=== PATIENT | female | born 1975 | race Caucasian/White ===

== ENCOUNTER 2017-07-01 05:05 | Day surgery (SDC) | payer MEDICAID ==
[2017-06-30 13:50] LABS: MCH 31.5 pg (26.0-34.0); MCHC 34.1 g/dL (31.0-37.0); MCV 92.1 fL (80.0-100.0); MEAN PLATELET VOLUME 9.8 fL (7.4-10.4); RBC 4.45 10x6/uL (4.00-5.40); RDW 12.4 % (11.5-14.5); WBC 9.7 10x3/uL (4.8-10.8)
[~2017-07-01 05:05] MED LIST: AMBIEN10 MG PO; EFFEXOR37.5 MG PO; HYDROCHLOROTH12.5 M1 PO; LYRICA300 MG PO; PERCOCET 10/3251 TA1 PO; ZANAFLEX4 MG PO
[2017-07-01 07:43] VITALS: BP 128/83; BMI 30.7
[2017-07-01 08:46] LABS: CALC OSMOLALITY 274 mosm/kg (275-300); CALCIUM 8.8 mg/dL (8.5-10.1); CARBON DIOXIDE 22.1 mmol/L (21.0-32.0); CHLORIDE - SERUM 103 mmol/L (98-107); CREATININE - SERUM 0.7 mg/dL (0.6-1.3); GLUCOSE 93 mg/dL (74-106); SODIUM 136 mmol/L (136-145); UREA NITROGEN 20 mg/dL (7-18); eGFR NON AFRICAN AMERICAN > 90 mL/min (90-120)
--- NOTE | 2017-07-01 10:41 | NUR ---
DR LOMELI AT , INJECTED PT WITH MARCAINE/LIDOCAINE FOR CONTINUED C/O PAIN.
--- NOTE | 2017-07-01 15:45 | NUR ---
1220--IV DC'D. SUZIE FRASER 1240--DISCHARGE INSTRUCTIONS GIVEN, PT VERBALIZES UNDERSTANDING. PT OFF UNIT VIA WC. SUZIE FRASER
--- NOTE | 2017-07-08 08:37 | OP ---
PATIENT NAME: BUDDY JONES MEDICAL RECORD: [id number] :71 LOCATION:D.OPS ADMISSION DATE: SURGEON: TERRIE LOMELI DPM DATE OF OPERATION: 07/01/2017 PREOPERATIVE DIAGNOSIS: Insufficiency fracture, left first metatarsal. POSTOPERATIVE DIAGNOSIS: Insufficiency fracture, left first metatarsal. PROCEDURE: ORIF, left first metatarsal, utilizing calcium phosphate injectable. ANESTHESIA: General with local infiltrate utilizing lidocaine and Marcaine plain, approximately 7 cc total. HEMOSTASIS: None. PREOPERATIVE DETAILS: The patient was taken to the OR and placed on the operating table in a supine position. This was followed by induction of general anesthesia and infiltration of local anesthetic. The left extremity was then prepped and draped in the usual aseptic technique. A small stab incision was made over the dorsal aspect of the middle of the first metatarsal. Utilizing guidewire under fluoroscopy, the cannula was placed in the head of the first metatarsal, being sure to not puncture into the first MPJ. At this time, under fluoroscopy guide, calcium phosphate was injected into the head of the first metatarsal with the appropriate amount. Following the injection and verification of C-arm of good placement, the calcium phosphate was left to cure for 10 minutes. The cannula was then removed, and the wound was closed with 4-0 nylon in a simple interrupted technique. Adaptic, 4 x 4 and Conform were used to dress the wound followed by Jared. POSTOPERATIVE DETAILS: The patient tolerated the procedure well and left the OR with vital signs stable and vascular status at preop levels. The patient was transported to recovery per anesthesia in stable condition. TRANSINT:[id number] Voice Confirmation ID: [id number] DOCUMENT ID: [id number] TERRIE LOMELI DPM at 0837 CC: [id number] DICTATION DATE: 07/01/17 1016 [employer] FEEDER: 07/01/17 1155 [facility] 07/01/[address] [address]
== END 2017-07-01 12:40 | disposition home or self-care (01) ==
LOC: D.OPS 05:05 → D.PAN 10:45 → D.OPS 12:00
PROVIDERS: Anesthesiology
DX: M84.475A Pathological fracture, left foot, initial encounter for fracture (principal); F17.200 Nicotine dependence, unspecified, uncomplicated; I10 Essential (primary) hypertension; K21.9 Gastro-esophageal reflux disease without esophagitis; Z01.812 Encounter for preprocedural laboratory examination

== ENCOUNTER 2018-02-03 05:15 | Day surgery (SDC) | payer MEDICAID ==
[2018-02-02 12:28] LABS: HEMATOCRIT 44.6 % (36.0-48.0); HEMOGLOBIN 15.3 g/dL (12-16); MCH 31.6 pg (26.0-34.0); MCHC 34.3 g/dL (31.0-37.0); MCV 92.1 fL (80.0-100.0); MEAN PLATELET VOLUME 9.5 fL (7.4-10.4); RBC 4.84 10x6/uL (4.00-5.40); RDW 12.5 % (11.5-14.5); WBC 8.5 10x3/uL (4.8-10.8)
[~2018-02-03] VITALS: Ht 167.6 cm; Wt 86.2 kg
--- NOTE | ~2018-02-03 | OP ---
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 PROCEDURE: First MPJ effusion, right foot. ANESTHESIA: Preoperative popliteal block per the anesthesia department as well as intraoperative general anesthesia. HEMOSTASIS: Right thigh tourniquet at 350 mmHg. PREOPERATIVE DETAILS: The patient was taken to the OR and placed on the operating table in a supine position. This was followed by induction of general anesthesia. The left extremity was then prepped and draped in usual aseptic technique followed by exsanguination and inflation of tourniquet. A 15 blade was used to create an incision over the dorsal aspect of the left first ray extending to the base of proximal phalanx. The incision was deepened down through subcutaneous tissue being sure to avoid all vital structures. Dissection was carried down to the first MPJ where a linear incision was made and the head of the first metatarsal and base of the proximal phalanx were delivered. There was noted to be significant degenerative joint disease of the head of the first metatarsal as well as the base of the proximal phalanx. There were significant osteochondral lesions with stage IV bucket lesion present as well as other osteochondral defects in the head of the first metatarsal. The base of the proximal phalanx also had significant degeneration of the cartilage. At this time, utilizing cup and cone reamers the cartilaginous surface was removed from the head of the first metatarsal and base of the proximal phalanx. This was followed by flushing and the joint was temporarily fixated with a K-wire. A 5-hole plate with 1 hole crossing the fusion site was then placed over the fusion site noting excellent internal rigid fixation as well as alignment of the hallux and compression of the fusion site. The wound was flushed. The joint capsule was repaired with 2-0 Vicryl, the subcutaneous tissue with 4-0 Rapide, and the skin was closed with 4-0 Rapide in a subcuticular technique followed by Dermabond, Adaptic, 4 x 4 and Conform were used to dress the wound followed by application of modified Mart compression dressing. Tourniquet was deflated. POSTOPERATIVE DETAILS: The patient tolerated the procedure well and left the OR with vital signs stable and vascular status at preoperative levels. The patient was transported to recovery per anesthesia in stable condition. TRANSINT:[id number] Voice Confirmation ID: [id number] DOCUMENT ID: [id number] OPERATIVE REPORT [id number] BUDDY JONES, TERRIE THURMAN at 0932 CC: [id number] DICTATION DATE: 02/03/18 0834 ELECTRONIC EQUIPMENT REPAIRER: 02/03/[address] [facility] 02/03/18 [id number] [place] [address]
[2018-02-03] MEDS ORDERED: PROTONIX20 MG (05:33)
[2018-02-03 05:34] VITALS: BP 119/82; Ht 167.6 cm; Wt 86.2 kg
== END 2018-02-03 12:05 | disposition home or self-care (01) ==
LOC: D.OPS 05:15 → D.PAN 07:00 → D.OPS 07:00
PROVIDERS: Anesthesiology
DX: M19.072 Primary osteoarthritis, left ankle and foot (principal); F17.200 Nicotine dependence, unspecified, uncomplicated; I10 Essential (primary) hypertension; K21.9 Gastro-esophageal reflux disease without esophagitis; Z01.812 Encounter for preprocedural laboratory examination

== ENCOUNTER 2018-06-23 13:24 | Emergency (ER) | payer MEDICAID ==
[~2018-06-23] VITALS: Ht 167.6 cm; Wt 81.8 kg
[~2018-06-23 13:24] MED LIST changes: +PROTONIX20 MG
[2018-06-23 13:36] VITALS: Ht 167.6 cm; Wt 81.8 kg
[2018-06-23] MEDS ORDERED: SUMATRIPTAN SUC25 MG PO (18:28)
[2018-06-23 19:28] VITALS: BP 145/77
== END 2018-06-23 19:28 | disposition home or self-care (01) ==
LOC: D.ER 13:24
DX: G43.909 Migraine, unspecified, not intractable, without status migrainosus (principal); F17.200 Nicotine dependence, unspecified, uncomplicated

== ENCOUNTER → 2018-10-11 09:44 | Outpatient (CLI) | payer MEDICAID ==
[2018-06-23 13:36] VITALS: BMI 29.1
[~2018-10-11 09:44] MED LIST changes: +SUMATRIPTAN SUC25 MG PO
== END | disposition home or self-care (01) ==
LOC: D.RAD 09:44
DX: R10.9 Unspecified abdominal pain (principal)

== ENCOUNTER 2021-02-27 07:10 | Day surgery (SDC) | payer MEDICARE, MEDICAID ==
[~2021-02-27] VITALS: Ht 167.6 cm; Wt 90.7 kg
--- NOTE | ~2021-02-27 | OP ---
PATIENT NAME: BUDDY TILLEY MEDICAL RECORD: [id number] :71 LOCATION:D.OPS ADMISSION DATE: SURGEON: TERRIE LOMELI DPM DATE OF OPERATION: 02/27/2021 PREOPERATIVE DIAGNOSES: 1. Painful hardware, left foot. 2. Arthritis, left first metatarsophalangeal joint with nonunion. POSTOPERATIVE DIAGNOSES: 1. Painful hardware, left foot. 2. Arthritis, left first metatarsophalangeal joint with nonunion. PROCEDURE: 1. Removal of hardware, left foot. 2. Fusion left first MPJ. ANESTHESIA: General with local infiltrate utilizing lidocaine and Marcaine plain, 10 mL total around the first ray of the left foot. HEMOSTASIS: Left thigh tourniquet at 330 mmHg. DESCRIPTION OF PROCEDURE: The patient was taken to the OR and placed on the operating table in a supine position followed by induction of general anesthesia and infiltration of local anesthetic. The left extremity was then prepped and draped in the usual aseptic technique followed by exsanguination and inflation of the tourniquet. A 15 blade was used to create an incision over the dorsal aspect of the first ray extending to the base of the proximal phalanx of the hallux. The incision was deepened down through subcutaneous tissue. Incision was made over the top of the hardware. The hardware was then freed. The screws and plates were then removed. Inspection of the first MPJ noted significant osteoarthritic changes as well as a nonunion. At this time, a sagittal saw was used to resect a very small amount of the head of the first metatarsal and the base of the proximal phalanx down to good healthy bone. At this time, to make sure that we had good healthy bone, I did inflate the tourniquet; there was good bleeding of the bony ends indicating an adequate fusion site. At this time, an Esmarch was placed around the ankle, surgery continued with subchondral drilling into the fusion site to encourage bony bridging followed by packing with bone graft that was both osteoinductive and osteoconductive. This allowed for less shortening. A 6-hole plate was then placed over the top of the fusion site with excellent rigid internal fixation. C-arm was used to verify good placement of the hardware as well as alignment of the hallux. The wound was flushed. The deep tissue was reapproximated with 2-0 Vicryl. The subcutaneous tissue was reapproximated with 4-0 Rapide and the skin was closed with 4-0 Rapide in a subcuticular technique followed by Dermabond, Adaptic, 4 x 4, and Conform were used to dress the wound followed by application of modified Mart compression dressing. The Esmarch was removed prior to application of the top of the modified Mart compression dressing. POSTOPERATIVE DETAILS: The patient tolerated the procedure well and left the OR with vital signs stable and vascular status at preoperative levels. The patient was transported to recovery per anesthesia in stable condition. TRANSINT:[id number] Voice Confirmation ID: [id number] DOCUMENT ID: [id number] OPERATIVE REPORT [id number] BUDDY TILLEY MCKAY DPM CC: [id number] DICTATION DATE: 02/27/21 1251 PODIATRIC ASSISTANT: 02/27/21 2225 [facility] 02/27/21 [facility] [address] [place] [address]
[~2021-02-27 07:10] MED LIST changes: +ASCORBIC ACID500 MG PO; +LIPITOR20 MG PO; +MERIBIN5 MG PO; +MULTI-DAY VITAM1 TAB PO; +NORVASC10 MG PO; +PERCOCET 10-321 EAC1 PO; -PROTONIX20 MG; +PROTONIX20 MG PO; +VITAMIN B COMPLEX; +VITAMIN D 22000 UNIT PO; +ZOFRAN4 MG PO
[2021-02-27 07:45] LABS: CALCIUM 8.7 mg/dL (8.5-10.1); CARBON DIOXIDE 27.1 mmol/L (21.0-32.0); POTASSIUM - SERUM 4.1 mmol/L (3.5-5.1)
[2021-02-27 07:49] LABS: BASOPHILS 0.6 % (0-2); EOSINOPHILS 5.3 % (0-7); HEMATOCRIT 38.7 % (36.0-48.0); HEMOGLOBIN 13.3 g/dL (12-16); MCH 30.6 pg (26.0-34.0); MCHC 34.3 g/dL (31.0-37.0); MCV 89.1 fL (80.0-100.0); MONOCYTES 8.1 % (2-11); RBC 4.34 10x6/uL (4.00-5.40); RDW 14.1 % (11.5-14.5)
[2021-02-27 07:58] LABS: PLATELET COUNT 414 10x3/uL (130-400)
[2021-02-27 08:38] VITALS: BP 163/84; Ht 167.6 cm; Wt 90.7 kg
--- NOTE | 2021-02-27 13:03 | NUR ---
PT SHIVERING, PREPARED TO GIVE DEMEROL PER ORDERS. PT STATES THAT LAST TIME SHE HAD DEMEROL, SHE HAD SYMTOMS SIMILAR TO THOSE EXPERIENCED WITH HER MORPHINE ALLERGY. DOSE HELD.
--- NOTE | 2021-02-27 13:10 | NUR ---
ANESTHESIA AT BEDSIDE FOR ADDITIONAL PAIN BLOCK PER PT REQUEST
--- NOTE | 2021-02-27 13:13 | NUR ---
PT CARE TRANSFERRED TO BETTY TRAVIS RN
--- NOTE | 2021-02-27 13:21 | NUR ---
REASSUMED CARE OF PT
--- NOTE | 2021-02-27 16:59 | NUR ---
1430 IV REMOVED AND PRESSURE HELD, INSTRUCTIONS GIVEN. NWB ON OPERATIVE FOOT. 1440 VOIDED
== END 2021-02-27 14:50 | disposition home or self-care (01) ==
LOC: D.OPS 07:10
PROVIDERS: Anesthesiology; ATTEND Podiatrist
DX: T84.84XA Pain due to internal orthopedic prosthetic devices, implants and grafts, initial encounter (principal); M19.072 Primary osteoarthritis, left ankle and foot; I10 Essential (primary) hypertension